=== PATIENT | female | born 1960 | race Caucasian/White ===

== ENCOUNTER → 2017-01-15 | Outpatient (CLI) | payer OTHER ==
[~2017-01-15] VITALS: Ht 162.6 cm; Wt 94.8 kg
[2017-01-15] VITALS (9 sets, daily range): BP systolic 112–155; BP diastolic 57–77
[~2017-01-15] MED LIST: ALLEGRA ALLERG180 MG PO; FISH OIL 1,0001 EAC7 PO; GLUCOSAMINE &1 EACH PO; IBUPROFEN 200200 M1 PO; MELOXICAM7.5 MG PO; MOBIC7.5 MG PO; PATADAY2.5 ML OP; SINGULAIR 10 MG10 M1 PO; VERAMYST10 GM NS; VITAMIN D1000 UNI1 PO; VOLTAREN GEL 1100 G1 TOP
== END | disposition home or self-care (01) ==
LOC: CAT 07:59
DX: M47.9 Spondylosis, unspecified (principal)